=== PATIENT | male | born 1970 ===

== ENCOUNTER → 2017-03-14 | Outpatient (CLI) | payer BC ==
--- NOTE | 2017-03-15 08:59 | RADIOLOGY REPORT (SQ) ---
EXAM DESCRIPTION: MRI LT LOWER JOINT WITHOUT COMPLETED DATE/TIME: 03/14/2017 7:33 pm REASON FOR STUDY: Unspecified internal derangement of left knee M23.92 UNSPECIFIED INTERNAL DERANGE MENT OF LEFT KNEE COMPARISON: None. TECHNIQUE: Leftknee images acquired and stored on PACS. Multiplanar images include fat sensitive se quences as T1, water sensitive sequences as FST2 or STIR, cartilage sensitive sequences as FSPD, and gradient echo sequences. LIMITATIONS: [employer]. FINDINGS: JOINT AND BURSAE: Fairly small joint effusion. No evidence of loose bodies. BONE CORTEX AND MARROW: No alteration of signal to suggest marrow replacement. No worrisome bone lesi ons. No occult fracture. ACL: Intact. No degeneration or ganglion cyst. PCL: Intact. MCL: Intact. Minimal adjacent soft tissue edema. LCL: Intact. No periligamentous edema or fluid. MEDIAL MENISCUS: Slightly extruded appearance. Mildly heterogeneous signal in the posterior horn, so me of which lies along the inferior articular surface. Suspicious for meniscus tear. LATERAL MENISCUS: No tears. No abnormal signal. MEDIAL COMPARTMENT: Mild generalized chondral thinning without focal defects or significant reactive bone changes. LATERAL COMPARTMENT: No full-thickness defects. Irregular thinning in the tibial weight-bearing surf lazarus. No underlying subchondral cysts or significant osteophytes. PATELLA: Normal location. Preserved hyaline cartilage. EXTENSOR MECHANISM: Intact. Quadriceps and patella tendons normal. SOFT TISSUES: Partially ruptured Delarosa's cyst. Appropriate vascular flow voids. OTHER: No other significant finding. IMPRESSION: 1. Suspicious for medial meniscus posterior horn tear. 2. Lateral meniscus, cruciate a nd collateral ligaments are generally intact. 3. Joint effusion. 4. Chondral loss without focal de fect or significant reactive bone cyst or osteophyte formation. TECHNICAL DOCUMENTATION: JOB ID: [id number]- All Rights Reserved
== END ==
LOC: RAD 18:37
PROVIDERS: ATTEND Family Medicine
DX: M23.92 Unspecified internal derangement of left knee (principal)